=== PATIENT | female | born 1975 | race Caucasian/White ===

== ENCOUNTER 2016-11-28 01:27 | Emergency (ER) | payer OTHER ==
[~2016-11-28] VITALS: Ht 165.1 cm; Wt 82.4 kg
[2016-11-28 01:40] VITALS: BP 150/90; PULSE 99; RESP 18; TEMP 98.3; O2SAT 100
[2016-11-28 03:24] LABS: BASOPHIL % 0.3 % (0.0-2.0); EOSINOPHIL # 0.1 TH/MM3 (0-0.4); HEMO FLAGS DIFF FINAL; LYMPH % 37.3 % (9.0-44.0); LYMPHOCYTE # 2.2 TH/MM3 (1.0-4.8); MEAN CELL VOLUME 90.1 FL (80.0-100.0); MEAN CORPUSCULAR HEMOGLOBIN 30.2 PG (27.0-34.0); MEAN CORPUSCULAR HGB CONC 33.5 % (32.0-36.0); MONO % 10.1 % (0.0-8.0); NEUT % 50.3 % (16.0-70.0); PLATELET COUNT 221 TH/MM3 (150-450); RED BLOOD COUNT 3.88 MIL/MM3 (4.00-5.30); RED CELL DISTRIBUTION WIDTH 12.6 % (11.6-17.2); WHITE BLOOD COUNT 5.9 TH/MM3 (4.0-11.0)
[2016-11-28 03:26] VITALS: BP 141/78; PULSE 78; RESP 18; O2SAT 99
[2016-11-28 03:31] LABS: BLOOD UREA NITROGEN 17 MG/DL (7-18); GLOMERULAR FILTRATION RATE 74 ML/MIN (>89)
[2016-11-28 03:32] LABS: ANION GAP 8 MEQ/L (5-15); BICARBONATE 26.3 MEQ/L (21.0-32.0); CHLORIDE 107 MEQ/L (98-107); CREATINE KINASE 162 U/L (26-192); POTASSIUM 3.5 MEQ/L (3.5-5.1); SODIUM (NA) 141 MEQ/L (136-145)
--- NOTE | 2016-11-28 03:33 | PD ---
HPI Chief Complaint: Pain: Acute or Chronic Time Seen by Provider: 03:29 Travel History International Travel<30 days: No Contact w/Intl Traveler<30days: No Traveled to known affect area: No History of Present Illness HPI 41-year-old female patient presents to the ER today for 3 weeks history of left- sided leg pains and tingling, feeling like her left arm and leg is tingling, feels like the leg is swelling. She also states she has been having intermittent left-sided chest discomfort which she currently rates at a 6 out of 10. She denies any shortness of breath, nausea, vomiting, or any other symptoms. She denies any recent injuries. She has not been on any recent long trips. Modifying Factors: None Associated Signs & Symptoms: Left leg pains, left arm tingling, chest pain Risk Factors: None PFSH Past Medical History Medical History: Denies Significant Hx Diminished Hearing: No Tetanus Vaccination: Unknown Influenza Vaccination: No ?: Not LMP: 11/23/16 Past Surgical History Surgical History: No Previous Surgery Social History Alcohol Use: No Tobacco Use: No Substance Use: No Allergies-Medications (Allergen,Severity, Reaction): Coded Allergies: No Known Allergies (Unverified , 11/28/16) Reported Meds & Prescriptions Reported Meds & Active Scripts Active No Active Prescriptions or Reported Medications Review of Systems Except as stated in HPI: all other systems reviewed are Neg Physical Exam Narrative GENERAL: Well-developed middle age female patient currently in mild distress. Awake and oriented 3. SKIN: Focused skin assessment warm/dry. HEAD: Atraumatic. Normocephalic. EYES: Pupils equal and round. No scleral icterus. No injection or drainage. ENT: No nasal bleeding or discharge. Mucous membranes pink and moist. NECK: Trachea midline. No JVD. CARDIOVASCULAR: Regular rate and rhythm. No murmur appreciated. Pulses are present and equal bilaterally. RESPIRATORY: No accessory muscle use. Clear to auscultation. Breath sounds equal bilaterally. GASTROINTESTINAL: Abdomen soft, non-tender, nondistended. Hepatic and splenic margins not palpable. MUSCULOSKELETAL: No obvious deformities. No clubbing. No cyanosis. No edema. EXTREMITIES: No clubbing, cyanosis, or edema. No joint tenderness, effusion, or edema noted. No calf tenderness. Bilateral Homans sign negative. NEUROLOGICAL: Awake and alert. No obvious cranial nerve deficits. Motor grossly within normal limits. Normal speech. PSYCHIATRIC: Appropriate mood and affect; insight and judgment normal. Data Data Last Documented VS Vital Signs Date Time Temp Pulse Resp B/P Pulse Ox O2 Delivery O2 Flow Rate FiO2 11/28/16 03:26 78 18 141/78 99 Room Air 11/28/16 01:40 98.3 Orders Complete Blood Count With Diff (11/28/16 02:30) Basic Metabolic Panel (Bmp) (11/28/16 02:30) Creatine Kinase (Cpk) (11/28/16 02:30) Troponin I (11/28/16 02:30) D-Dimer (11/28/16 02:30) Electrocardiogram (11/28/16 03:34) Labs Laboratory Tests Test 11/28/16 02:30 White Blood Count 5.9 TH/MM3 Red Blood Count 3.88 MIL/MM3 Hemoglobin 11.7 GM/DL Hematocrit 35.0 % Mean Corpuscular Volume 90.1 FL Mean Corpuscular Hemoglobin 30.2 PG Mean Corpuscular Hemoglobin 33.5 % Concent Red Cell Distribution Width 12.6 % Platelet Count 221 TH/MM3 Mean Platelet Volume 8.4 FL Neutrophils (%) (Auto) 50.3 % Lymphocytes (%) (Auto) 37.3 % Monocytes (%) (Auto) 10.1 % Eosinophils (%) (Auto) 2.0 % Basophils (%) (Auto) 0.3 % Neutrophils # (Auto) 3.0 TH/MM3 Lymphocytes # (Auto) 2.2 TH/MM3 Monocytes # (Auto) 0.6 TH/MM3 Eosinophils # (Auto) 0.1 TH/MM3 Basophils # (Auto) 0.0 TH/MM3 CBC Comment DIFF FINAL Differential Comment D-Dimer Quantitative (PE/DVT) 0.36 MG/L FEU Sodium Level 141 MEQ/L Potassium Level 3.5 MEQ/L Chloride Level 107 MEQ/L Carbon Dioxide Level 26.3 MEQ/L Anion Gap 8 MEQ/L Blood Urea Nitrogen 17 MG/DL Creatinine 0.85 MG/DL Estimat Glomerular Filtration 74 ML/MIN Rate Random Glucose 106 MG/DL Calcium Level 8.6 MG/DL Total Creatine Kinase 162 U/L Troponin I LESS THAN 0.02 NG/ML MDM Medical Decision Making Medical Screen Exam Complete: Yes Emergency Medical Condition: Yes Medical Record Reviewed: Yes Interpretation(s) EKG shows NSR, no ST elevation or depression, and no arrhythmias. No significant T-wave inversions. Laboratory Tests Test 11/28/16 02:30 Red Blood Count 3.88 MIL/MM3 (4.00-5.30) Monocytes (%) (Auto) 10.1 % (0.0-8.0) Estimat Glomerular Filtration 74 ML/MIN (>89) Rate Troponin I LESS THAN 0.02 NG/ML (0.02-0.05) Differential Diagnosis ACS versus DVT/PE versus muscular Narrative Course D-dimer is negative. Ultrasound shows no signs of DVT. Lab work shows a negative cardiac enzyme. Her EKG was normal. At this point, symptoms are not indicative of dysrhythmias or obvious ST changes indicative of cardiac etiology. However, if she gets continuing to have chest pains, I would recommend that she gets a normal cardiac evaluation. I have offered to admit her to the chest pain center but patient is declining at this point stating that she will follow-up with her primary care doctor. Return for any worsening in symptoms as necessary. The plan has been discussed with her and she states understanding. 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 Diagnosis Primary Impression: Left leg swelling Additional Impression: Atypical chest pain Med/Other Pt SpecificInfo: Prescription(s) given Scripts Ibuprofen (Motrin Ib)200 Mg Imlndn218 Mg PO QID PRN (PAIN SCALE 1 TO 10) #20 Prov:Mike Holman MD 11/28/16 Disposition: 01 DISCHARGE HOME Condition: Stable Mike Holman MD Nov 28, 2016 03:33
[2016-11-28] MEDS ORDERED: IBUP-1129 PO (04:30)
[2016-11-28 04:45] VITALS: BP 142/77; PULSE 74; RESP 18; O2SAT 99
--- NOTE | 2016-11-28 10:17 | RADRPT ---
EXAM DATE/TIME: 11/28/2016 03:12 [facility] COMPARISON: No previous studies available for comparison. INDICATIONS : Left knee pain for three weeks. MEDICAL HISTORY : None. SURGICAL HISTORY : None. ENCOUNTER: Initial ACUITY: 3 weeks PAIN SCORE: 5/10 LOCATION: Left Knee FINDINGS: Two view examination of the left knee demonstrates no evidence of fracture or dislocation. Bony mine ralization is normal. Mild osteoarthritis. The suprapatellar soft tissues have a normal configuration . CONCLUSION: Mild osteoarthritis without fracture.. Shahab Bajwa MD on November 28, 2016 at 4:48 Board Certified Radiologist. This report was verified electronically.
--- NOTE | 2016-11-28 10:17 | RADRPT ---
EXAM DATE/TIME: 11/28/2016 03:12 [facility] COMPARISON: No previous studies available for comparison. INDICATIONS : Upper left chest pain for three weeks. MEDICAL HISTORY : None. SURGICAL HISTORY : None. ENCOUNTER: Initial ACUITY: 3 weeks PAIN SCORE: 5/10 LOCATION: Left chest FINDINGS: PA and lateral views of the chest demonstrate the lungs to be symmetrically aerated without evidence of mass, infiltrate or effusion. The cardiomediastinal contours are unremarkable. Osseous structure s are intact. Old left-sided rib fracture. CONCLUSION: No acute disease. Shahab Bajwa MD on November 28, 2016 at 4:47 Board Certified Radiologist. This report was verified electronically.
--- NOTE | 2016-11-28 13:24 | EKG ---
Date Performed: 11/28/2016 Time Performed: 03:47:24 PTAGE: 41 years EKG: Sinus rhythm NORMAL ECG NO PREVIOUS TRACING DOCTOR: Immanuel Berrios Interpretating Date/Time 11/28/2016 13:23:34
--- NOTE | 2016-11-29 10:04 | RADRPT ---
EXAM DATE/TIME: 11/28/2016 03:08 [facility] COMPARISON: No previous studies available for comparison. INDICATIONS : Left leg pain. MEDICAL HISTORY : Left knee pain. SURGICAL HISTORY : None. ENCOUNTER: Initial ACUITY: 2 weeks PAIN SCORE: 3/10 LOCATION: Left leg. TECHNIQUE: Venous ultrasound of the leg was performed from the inguinal ligament to the proximal calf. Real-ananya e, color Doppler and spectral tracing, compression and augmentation techniques were used. FINDINGS: There is normal compressibility of the deep venous system from the inguinal region to the proximal ca lf. No echogenic clot is seen in the lumen of the common femoral, femoral, popliteal, and posterior tibial veins. There is a normal response of the venous system to proximal and distal augmentation an d respiration. CONCLUSION: No DVT left leg. Shahab Bajwa MD on November 28, 2016 at 3:34 Board Certified Radiologist. This report was verified electronically.
== END 2016-11-28 04:48 | disposition home or self-care (01) ==
LOC: PHED 01:27
DX: R22.42 Localized swelling, mass and lump, left lower limb (principal); R07.89 Other chest pain; R20.2 Paresthesia of skin
CPT/HCPCS: 71020; 73560; 80048; 82550; 84484; 85025; 85379; 93005; 93971